=== PATIENT | male | born 1965 | race Caucasian/White ===

== ENCOUNTER → 2019-01-16 | Outpatient (CLI) | payer OTHER ==
--- NOTE | 2019-01-16 13:18 | MR ---
EXAMINATION TYPE: MR lumbar spine wo con DATE OF EXAM: 01/16/2019 COMPARISON: Plain film 01/11/2016 HISTORY: Lumbago with sciatica TECHNIQUE: Multiplanar, multisequence images of the lumbar spine were acquired. L1-L2: Normal disc appearance without desiccation. No herniation, protrusion or disc bulging. No ca nal stenosis is present. Foramina are patent bilaterally. L2-L3: Posterior broad-based disc bulge causes mild anterior mass effect on the thecal sac. No signif icant foraminal encroachment or central stenosis. L3-L4: Broad-based posterior disc bulge causes mild anterior mass effect on the thecal sac, no signif icant central stenosis or foraminal encroachment. Facet arthropathy with hypertrophy ligamentum flavu m encroaches somewhat on the posterior lateral thecal sac. L4-L5: Circumferential posterior disc bulge, extension of endplate disc complex causes minimal anteri or mass effect on the thecal sac and extends laterally causing some foraminal encroachment. No signif icant central stenosis. Mild facet arthropathy changes present. L5-S1: Small posterior disc bulge is present, no significant central stenosis. No definite foraminal encroachment. There are facet arthropathy changes. Lumbar segments are intact. No paraspinal masses are identified. Conus medullaris has a normal appe arance. There is a slight spinal curvature as on plain film. Mild anterior wedging of L1 is chronic f inding. Alignment is stable, there is retrolisthesis grade 1 L4-5, L3-4, L2-3 and L1-2. There is a li irene the filum terminale. There is multilevel spondylosis with endplate discogenic marrow signal roberts ge. Loss of disc height signal is present at intervertebral levels. IMPRESSION: Degenerative disc disease, facet arthropathy, mild spinal curvature and additional findings above.
== END | disposition home or self-care (01) ==
LOC: RADMRIMAIN 11:16
PROVIDERS: ATTEND Physician Assistant Medical
DX: M51.16 Intervertebral disc disorders with radiculopathy, lumbar region (principal); M46.86 Other specified inflammatory spondylopathies, lumbar region; M43.8X6 Other specified deforming dorsopathies, lumbar region
CPT/HCPCS: 72148

== ENCOUNTER → 2019-04-25 | Outpatient (CLI) | payer OTHER ==
--- NOTE | 2019-04-25 10:00 | XR ---
EXAMINATION TYPE: XR cervical spine comp DATE OF EXAM: 04/25/2019 COMPARISON: None HISTORY: Cervicalgia, left arm pain TECHNIQUE: 5 view cervical spine supplemented with a transthoracic swimmer's view FINDINGS: Some carotid artery calcification may be present on the left. Facet degenerative changes ar e present. There is severe left foraminal stenosis present C5-6 and moderate foraminal narrowing seen C4-5 on the left. Severe C5-6 right foraminal stenosis is present. Prevertebral space is normal. Disc space narrowing is present C4-5, C5-6. Posterior spinal lamellar l ine is intact. IMPRESSION: 1. Foraminal stenosis is present C5-6 bilaterally. Correlate with radicular symptoms. MRI follow-up could be performed. 2. Degenerative disc changes C5-6, C6-7.
== END | disposition home or self-care (01) ==
LOC: RADXRYALE 09:38
PROVIDERS: ATTEND Physician Assistant Medical
DX: M48.02 Spinal stenosis, cervical region (principal); M50.322 Other cervical disc degeneration at C5-C6 level
CPT/HCPCS: 72050

== ENCOUNTER → 2019-05-30 | Outpatient (CLI) | payer OTHER ==
--- NOTE | 2019-05-31 16:40 | MR ---
EXAMINATION TYPE: MR cervical spine wo con DATE OF EXAM: 05/30/2019 COMPARISON: Radiograph 04/25/2019 HISTORY: 54-year-old male Neck pain, left arm numbness/tingling x 9 mos TECHNIQUE: Multiplanar, multisequence images of the cervical spine were acquired. FINDINGS: No craniocervical junction abnormality, predental space widening, or prevertebral soft tissue swellin g. Alignment of the cervical spine is maintained. Mild heterogeneous marrow signal without suspicious bone marrow replacement. No prevertebral or paravertebral soft tissue abnormality. Moderate multilevel degenerative disc disease with desiccated, moderately narrowed disks and discusse d by complex formation. Ligamentum flavum thickening in the mid to lower cervical spine. Facet and uncovertebral joint arthropathy is present throughout. At C2-C3, minimal posterior disc bulge and facet/uncovertebral joint arthropathy. Changes result in m ild right neuroforaminal stenosis. No significant canal stenosis. At C3-C4, minimal broad-based disc osteophyte complex with uncovertebral joint and facet degenerative change. No significant canal or foraminal stenosis. At C4-C5, broad-based disc osteophyte complex with contiguous uncovertebral joint arthropathy on the left. Bilateral facet arthropathy. Changes result in moderate left neural foraminal stenosis with mil d overall narrowing of the spinal canal. At C5-C6, there is broad-based disc osteophyte complex with contiguous uncovertebral joint and facet arthropathy. Ligamentum flavum thickening. Changes result in moderate to severe left and moderate rig ht neuroforaminal stenosis. Minimal overall narrowing of the spinal canal without cord abutment or co rd flattening. At C6-C7, broad-based discussed by complex with uncovertebral joint and facet degenerative change. Ch anges result in moderate bilateral neural foraminal stenosis without significant spinal canal stenosi s. At C7-T1, facet arthropathy without significant canal or foraminal stenosis. Normal course, caliber, and signal intensity of the cervical spinal cord. IMPRESSION: 1. Moderate multilevel degenerative disc disease with desiccated and mildly narrowed disks. Multileve l disc osteophyte complex formation. 2. Uncovertebral joint and facet arthropathy with ligamentum flavum thickening as well. 3. Changes result in mild narrowing of the spinal canal at C4-C5 and C5-C6. No high-grade canal compr omise or cord compression. 4. Variable neuroforaminal stenoses as outlined above, moderate to severe on the left and moderate on the right at C5-C6. Moderate on both sides at C6-C7. Moderate on the left at C4-C5.
== END | disposition home or self-care (01) ==
LOC: RADMRIMAIN 15:54
PROVIDERS: ATTEND Physician Assistant Medical
DX: M48.02 Spinal stenosis, cervical region (principal); M50.30 Other cervical disc degeneration, unspecified cervical region; M46.92 Unspecified inflammatory spondylopathy, cervical region
CPT/HCPCS: 72141

== ENCOUNTER → 2019-10-08 | Outpatient (CLI) | payer OTHER ==
--- NOTE | 2019-10-08 11:26 | BD ---
EXAMINATION TYPE: Axial Bone Density DATE OF EXAM: 10/08/2019 COMPARISON: NONE CLINICAL HISTORY: disorders of bone Height: 5'7 Weight: 187 FRAX RISK QUESTIONS: Alcohol (3 or more units per day): y History of Fracture in Adulthood: y Secondary Osteoporosis: RISK FACTORS HISTORY OF: Spine Fracture: y When: History of Wrist Fracture: rt When: 1979 Diet low in dairy products/other sources of calcium: y MEDICATIONS: Additional Medications: blood pressure, norco , pain Additional History: EXAM MEASUREMENTS: Bone mineral densitometry was performed using the Foruforever System. Bone mineral density about the R hip (g/cm2): 0.905 Bone mineral density about the L hip (g/cm2): 0.906 T Score values are as follows: -----R Neck: -1.0 -----L Neck: -1.0 -----R Total: 0.3 -----L Total: 0.3 Bone mineral density about the R Wrist (g/cm2): 0.868 T Score values are as follows: -----Dist. R+U: 2.6 -----Prox. R+U: 0.8 -----Radius total: 1.7 IMPRESSION: Normal (Values between +1 and -1 indicate normal bone mass). Consider repeating this study in 5 year s or sooner if there is some new clinical indication. NOTE: T-SCORE=SD OF THE YOUNG ADULT MEAN.
== END | disposition home or self-care (01) ==
LOC: RADBDWWP 06:57
PROVIDERS: ATTEND Family Medicine
DX: M85.80 Other specified disorders of bone density and structure, unspecified site (principal); E29.1 Testicular hypofunction
CPT/HCPCS: 77080

== ENCOUNTER → 2020-11-03 | Day surgery (SDC) | payer OTHER ==
[2020-10-30 13:07] VITALS: BMI 28.6
[~2020-11-03] MED LIST: ENALAPRILAT 1.25 MG/ML 1 ML VIAL IV ONE; ENALAPRILAT 1.25 MG/ML 1 ML VIAL ONE; KETAMINE 10 MG/ML 20 ML VIAL ONE; LACTATED RINGERS 1,000 ML IV SCH; LIDOCAINE 1% (10MG/ML) FOR IV START INTRADERMA PRN; PROPOFOL 10 MG/ML 20 ML VIAL IV ONE; hydrALAZINE HCL 20 MG/ML 1 ML VIAL IV ONE; hydrALAZINE HCL 20 MG/ML 1 ML VIAL ONE
[2020-11-03 11:22] VITALS: TEMP 97.3
--- NOTE | 2020-11-03 12:58 | P.PCN ---
Date of Procedure: 11/03/20 Description of Procedure: BRIEF HISTORY: Patient is a 55-year-old male presenting for an outpatient esophagogastroduodenoscopy for evaluation of symptoms of esophageal dysphagia. He reports symptoms are difficulty swallowing solid food multiple episodes of vomiting here obstruction. Patient is on daily naproxen. PROCEDURE PERFORMED: Esophagogastroduodenoscopy with biopsy. PREOPERATIVE DIAGNOSIS: Dysphagia. ESTIMATED BLOOD LOSS: Minimal. IV sedation per anesthesia. PROCEDURE: After informed consent was obtained, the patient was brought into the endoscopy unit. IV sedation was administered by Anesthesia under continuous monitoring. Initially the Olympus GIF-190 video endoscope was inserted into the mouth. Esophagus intubated without any difficulty. It was gradually advanced into the stomach and duodenum and carefully examined. The bulb and the second part of the duodenum appeared normal, with biopsies taken. The scope at this time was withdrawn to the stomach, adequately insufflated with air, and upon careful examination, mucosa of the antrum, body, cardia and the fundus was significant for some mild scattered erythema in antrum and body suggestive of mild gastritis with biopsies taken. There were also 5 superficial nonbleeding antral ulcers with biopsies taken. The scope was then withdrawn into the esophagus. The GE junction was located at 39 cm from the incisors, with a small 1 cm hiatal hernia noted. There was a nonbleeding 3 mm ulcer at the GE junction which was biopsied. The esophagus appeared normal. There were no erosions or ulcerations seen and the patient tolerated the procedure well. IMPRESSION: 1. 5 superficial antral ulcers, without high-risk stigmata for bleeding. 2. Esophageal ulcer just proximal to the GE junction, without high-risk stigmata for bleeding. 3. Mild gastritis. 4. Small hiatal hernia. 5. Biopsies of the duodenum, antrum body, antral ulcers, esophageal ulcer. RECOMMENDATIONS: The findings of this examination were discussed with the patient in his family. Okay to resume diet. Patient will be given a prescription for increased omeprazole from daily to twice daily. Patient must stop and avoid all NSAID use including naproxen. Await pathology from biopsies. Patient can repeat EGD in 6-8 weeks to check for ulcer healing and if dilation is appropriate at that time can be performed.
[2020-11-03 13:08] VITALS: RESP 16
[2020-11-03 15:00] VITALS: BP 156/94; PULSE 83
== END ==
LOC: ORWHC2ENDO 10:08
PROVIDERS: ATTEND Internal Medicine
DX: K29.50 Unspecified chronic gastritis without bleeding (principal); K25.9 Gastric ulcer, unspecified as acute or chronic, without hemorrhage or perforation; K21.00 Gastro-esophageal reflux disease with esophagitis, without bleeding; K22.10 Ulcer of esophagus without bleeding; K44.9 Diaphragmatic hernia without obstruction or gangrene; K22.8 Other specified diseases of esophagus; I10 Essential (primary) hypertension; Z79.899 Other long term (current) drug therapy
CPT/HCPCS: 88305; 43239; J0360; J2704

== ENCOUNTER 2021-02-23 07:51 | Day surgery (SDC) | payer OTHER ==
[2021-02-18 15:39] VITALS: BMI 28.8
[~2021-02-23 07:51] MED LIST changes: -ENALAPRILAT 1.25 MG/ML 1 ML VIAL IV ONE; -ENALAPRILAT 1.25 MG/ML 1 ML VIAL ONE; -KETAMINE 10 MG/ML 20 ML VIAL ONE; -PROPOFOL 10 MG/ML 20 ML VIAL IV ONE; -hydrALAZINE HCL 20 MG/ML 1 ML VIAL IV ONE; -hydrALAZINE HCL 20 MG/ML 1 ML VIAL ONE
[2021-02-23 08:32] VITALS: TEMP 97.6
[2021-02-23] MEDS ORDERED: hydrALAZINE HCL 20 MG/ML 1 ML VIAL IVP ONE (08:41)
[2021-02-23] MEDS ORDERED: LIDOCAINE 1% INJ 10MG/ML (20 ML MDV) ONE (09:16)
[2021-02-23] MEDS ORDERED: PROPOFOL 10 MG/ML 20 ML VIAL IV ONE (09:16)
--- NOTE | 2021-02-23 09:40 | P.PCN ---
Date of Procedure: 02/23/21 Description of Procedure: BRIEF HISTORY: Patient is a 49-year-old male presenting for esophagogastroduodenoscopy for evaluation of gastric ulcers and prior complaint of esophageal dysphagia. Previously seen 40 difficulty swallowing solid foods as well as vomiting. The patient was on daily naproxen therapy. He was taken for EGD on 11/03/20 with findings of superficial antral ulcers, esophageal ulcer, mild gastritis, small hiatal hernia with biopsies taken at that time. Patient did well on PPI therapy which was discontinued presented back reporting abdominal pain and bloating. Started back on omeprazole twice daily currently he is reporting improvement in his symptoms. PROCEDURE PERFORMED: Esophagogastroduodenoscopy with biopsy and dilation with [id number] balloon dilator. PREOPERATIVE DIAGNOSIS: Multiple gastric ulcers, esophageal dysphagia, abdominal bloating. ESTIMATED BLOOD LOSS: Minimal. IV sedation per anesthesia. PROCEDURE: After informed consent was obtained, the patient was brought into the endoscopy unit. IV sedation was administered by Anesthesia under continuous monitoring. Initially the Olympus GIF-190 video endoscope was inserted into the mouth. Esophagus intubated without any difficulty. It was gradually advanced into the stomach and duodenum and carefully examined. The bulb and the second part of the duodenum appeared normal, with biopsies taken. The scope at this time was withdrawn to the stomach, adequately insufflated with air, and upon careful examination, mucosa of the antrum, body, cardia and the fundus appeared normal, with biopsies of antrum and body taken. The scope was then withdrawn into the esophagus. The GE junction was located at 39 cm from the incisors, with a patent distal esophageal Schatzki's ring serially dilated at 13.5 mm and 15 mm with superficial mucosal tearing noted. A 1 cm hiatal hernia was seen. The esophagus appeared normal. There were no erosions or ulcerations seen and the patient tolerated the procedure well. IMPRESSION: 1. Widely patent distal esophageal Schatzki's ring dilated with throug h-the-scope balloon dilator . 2. Small hiatal hernia. 3. Biopsies of the duodenum, antrum and body. 4. Previously seen antral and esophageal ulcer is well healed. RECOMMENDATIONS: The findings of this examination were discussed with the patient and his family. Okay to resume diet. Okay to resume medications. Continue PPI therapy for now with omeprazole twice daily. Follow-up in the GI clinic for further management. Continue dietary modifications as discussed.
[2021-02-23 09:42] VITALS: RESP 18
[2021-02-23 10:41] VITALS: BP 152/90; PULSE 98
== END 2021-02-23 10:09 | disposition home or self-care (01) ==
LOC: ORWHC2ENDO 07:51
PROVIDERS: ATTEND Internal Medicine
DX: K22.2 Esophageal obstruction (principal); K44.9 Diaphragmatic hernia without obstruction or gangrene; K31.9 Disease of stomach and duodenum, unspecified; K29.70 Gastritis, unspecified, without bleeding; I10 Essential (primary) hypertension; Z87.11 Personal history of peptic ulcer disease; Z87.19 Personal history of other diseases of the digestive system; Z79.899 Other long term (current) drug therapy; Z79.891 Long term (current) use of opiate analgesic; Z79.82 Long term (current) use of aspirin; Z98.890 Other specified postprocedural states; Z79.1 Long term (current) use of non-steroidal anti-inflammatories (NSAID)
CPT/HCPCS: 88305; 43239; 43249; J0360; J2001; J2704; C1726

== ENCOUNTER → 2023-12-04 | Outpatient (CLI) | payer OTHER ==
--- NOTE | 2023-12-04 11:34 | XR ---
EXAMINATION TYPE: XR ribs LT w pa chest xray, 5 views DATE OF EXAM: 12/04/2023 Comparison: None Clinical History: 58-year-old male [id number] FALL Findings: Callus relating to old healed rib fractures. This appears to involve left lateral and anterolateral f ifth, eighth, ninth, and 10th ribs. Additional old healed rib fracture deformities right lateral mid ribs. Heart upper limits of normal size. Aorta and pulmonary vasculature within normal limits. No con solidation, pneumothorax, or pleural effusion seen. Impression: Callus suggesting old healed bilateral rib fracture deformities. No acute displaced rib fracture is c learly identified.
== END | disposition home or self-care (01) ==
LOC: RADXRYALE 11:08
PROVIDERS: ATTEND Physician Assistant
DX: G89.11 Acute pain due to trauma (principal); W01.0XXA Fall on same level from slipping, tripping and stumbling without subsequent striking against object, initial encounter; S29.9XXA Unspecified injury of thorax, initial encounter

== ENCOUNTER → 2024-10-16 | Outpatient (CLI) | payer OTHER ==
--- NOTE | 2024-10-16 09:04 | FL ---
EXAMINATION TYPE: FL barium swallow DATE OF EXAM: 10/16/2024 COMPARISON: CLINICAL INDICATION: Male, 59 years old with history of K25.9 GASTRIC ULCER; [facility], TECHNIQUE: A double contrast esophagram is performed utilizing air and barium. A total of 1 minute and 14 seconds of fluoroscopic time was utilized during procedure and 44 images obtained. Total dose area product (DAP) in uGy*m?, mGy*cm? (or similar) Not provided. COMPARISON: None FINDINGS: Pulmonary views demonstrate calcifications and bilateral soft tissue neck likely related to carotid a rtery atherosclerotic disease. Correlate clinically. Multilevel hypertrophic and degenerative changes of the spine. There is a small posterior wall diverticulum level C6-C7 likely representing a small Zenker's diverti culum measuring 1 cm or less. There are numerous tertiary contractions of esophagus. Tiny hiatal hernia. A mild gradual tapering of the mid thoracic esophagus with incomplete distention has smooth margins. No evidence of obstruction . No gastroesophageal reflux identified. IMPRESSION: 1. No evidence of obstruction. Mild esophageal fold thickening can be associated of mild esophagitis. 2. Small subcentimeter Zenker's diverticulum. 3. Tertiary contractions of the esophagus with small hiatal hernia. 4. There is a smooth taper narrowing or lack of distention of the mid thoracic spine. Would recommend correlation with direct visualization. 5. The patient had difficulty with initiation of the swallowing mechanism and may benefit from a amado fied barium swallow. No evidence of aspiration. [facility], , 10/16/2024 9:02 AM
== END | disposition home or self-care (01) ==
LOC: RADFLMAIN 08:02
PROVIDERS: ATTEND Student in an Organized Health Care Education/Training Program
DX: K25.9 Gastric ulcer, unspecified as acute or chronic, without hemorrhage or perforation (principal); K22.5 Diverticulum of esophagus, acquired; K44.9 Diaphragmatic hernia without obstruction or gangrene
CPT/HCPCS: 74220